=== PATIENT | female | born 1995 | race Caucasian/White ===

== ENCOUNTER 2023-01-08 01:01 | Emergency (ER) | payer MEDICAID, SELFPAY ==
[2023-01-08 01:03] VITALS: BP 112/94; PULSE 97; RESP 18; TEMP 36.5; O2SAT 99; BMI 28.0
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
--- NOTE | 2023-01-08 01:41 | RAD_ITS ---
EXAM: XR RIGHT HAND COMPLETE, 3 OR MORE VIEWS CLINICAL INDICATION: pain TECHNIQUE: Frontal, lateral and oblique views of the right hand. COMPARISON: No relevant prior studies available. FINDINGS: BONES/JOINTS: Unremarkable. No acute fracture. No subluxation. Normal alignment. Preservation of the joint space. No sclerotic or destructive changes observed. SOFT TISSUES: Unremarkable. No soft tissue swelling or gas. No radiopaque foreign body. RAD/Hand Min 3 Views IMPRESSION: Negative right hand x-rays. Electronically Signed: Andres Yip MD at 2:43 EDT ,
--- NOTE | 2023-01-08 01:41 | CT_ITS ---
EXAM: CT ANGIOGRAPHY NECK WITHOUT AND WITH INTRAVENOUS CONTRAST CLINICAL INDICATION: neck injury TECHNIQUE: Routine carotid CT angiography protocol was performed without and with intravenous contrast. NASCET criteria using the distal ICAs for comparison were used for evaluation of stenoses. This CT exam was performed using one or more of the following dose reduction techniques: automated exposure control, adjustment of the mA and/or kV according to patient size, and/or use of iterative reconstruction technique. MIP reconstructed images were created and reviewed. CONTRAST: IV 100mL [id number] RADIATION DOSE: Total DLP: 381.28 mGy-cm. COMPARISON: No relevant prior studies available. FINDINGS: VASCULATURE: RIGHT COMMON CAROTID ARTERY: Unremarkable. No occlusion or significant stenosis. No dissection. RIGHT INTERNAL CAROTID ARTERY: Unremarkable. Extracranial segment is patent with no occlusion or significant stenosis. No dissection. RIGHT EXTERNAL CAROTID ARTERY: Unremarkable. No occlusion. RIGHT VERTEBRAL ARTERY: Unremarkable. No occlusion or significant stenosis. No dissection. LEFT COMMON CAROTID ARTERY: Unremarkable. No occlusion or significant stenosis. No dissection. LEFT INTERNAL CAROTID ARTERY: Unremarkable. Extracranial segment is patent with no occlusion or significant stenosis. No dissection. LEFT EXTERNAL CAROTID ARTERY: Unremarkable. No occlusion. LEFT VERTEBRAL ARTERY: Unremarkable. No occlusion or significant stenosis. No dissection. BRACHIOCEPHALIC AND SUBCLAVIAN ARTERIES: Unremarkable as visualized. No occlusion or significant stenosis. OTHER ARTERIES: The basilar artery is normal. Visualized portions of the anterior, middle and posterior cerebral arteries are unremarkable. The visualized dural venous sinuses enhance normally. Visualized brain parenchyma is unremarkable. NECK: BONES/JOINTS: Unremarkable. Cervical vertebrae demonstrate normal curvature and alignment. No compression fracture, posterior element fracture or facet dislocation. The odontoid is intact. The hyoid bone is intact. No acute facial bone fracture is identified. There is no TMJ dislocation. SOFT TISSUES: Streaky density/hemorrhage noted within the right supraclavicular fossa, with streaky fat stranding extending superiorly into the right lower neck, posterior to the sternocleidomastoid muscle and lateral to the internal jugular vein. No active contrast extravasation is seen to indicate active bleeding. Sternocleidomastoid muscles are symmetric. There is no precervical soft tissue swelling. Normal size anterior and posterior internal jugular lymph nodes are present. No adenopathy is noted. Parotid and submandibular glands are unremarkable. LUNG APICES: Clear. Visualized upper ribs are intact. The visualized clavicles are intact. CAROTID STENOSIS REFERENCE USING NASCET CRITERIA: % ICA stenosis = (1 - narrowest ICA diameter/diameter of distal cervical ICA) x 100. Mild - <50% stenosis. Moderate - 50-69% stenosis. Severe - 70-94% stenosis. Near occlusion - 95-99% stenosis. Occluded - 100% stenosis. CT/CTA Neck W/WO Contrast IMPRESSION: No acute injury of the carotid or vertebral arteries identified. Streaky fat stranding/hemorrhage within the right supraclavicular fossa and extending into the inferior lateral aspect of the neck. No active contrast extravasation identified to indicate active bleeding. No acute fracture identified. Visualized upper lungs are clear. Electronically Signed: Andres Yip MD at 3:01 EDT ,
--- NOTE | 2023-01-08 01:41 | RAD_ITS ---
EXAM: XR RIGHT SHOULDER COMPLETE, 2 OR MORE VIEWS CLINICAL INDICATION: pain TECHNIQUE: 4 views of the right shoulder. COMPARISON: No relevant prior studies available. FINDINGS: BONES/JOINTS: Unremarkable. No acute fracture. No dislocation or AC joint widening. Normal alignment. Preservation of the joint space. No sclerotic or destructive changes observed. SOFT TISSUES: Unremarkable. No soft tissue swelling or gas. No radiopaque foreign body. OTHER: The visualized right upper ribs are intact. The visualized right lung is clear. RAD/Shoulder min 2 Views IMPRESSION: Negative right shoulder x-rays. Electronically Signed: Andres Yip MD at 2:42 EDT ,
--- NOTE | 2023-01-08 01:41 | CT_ITS ---
EXAM: CT HEAD WITHOUT INTRAVENOUS CONTRAST CLINICAL INDICATION: head injury TECHNIQUE: Multiple axial images were obtained of the head without intravenous contrast. This CT exam was performed using one or more of the following dose reduction techniques: automated exposure control, adjustment of the mA and/or kV according to patient size, and/or use of iterative reconstruction technique. RADIATION DOSE: Total DLP: 812.98 mGy-cm. COMPARISON: No relevant prior studies available. FINDINGS: BRAIN AND EXTRA-AXIAL SPACES: No intra- or extra-axial hemorrhage. No evidence of acute infarct. No intracranial mass or mass effect. There is preservation of the villalobos/white matter interface. Posterior fossa structures are unremarkable. Lateral and third ventricles are small, consistent with age. The fourth ventricle is normal in size. The basal cisterns are preserved. Cerebral cortical sulci and sylvian fissures are visible. No hydrocephalus. No midline shift. BONES/JOINTS: Unremarkable. No discrete lytic or blastic abnormalities. No linear or depressed skull fracture. SOFT TISSUES: Unremarkable. No scalp hematoma. SINUSES: Unremarkable as visualized. Clear. MASTOID AIR CELLS: Unremarkable. Clear. ORBITS: Visualized globes, extraocular muscles, optic nerves and retrobulbar fat appear unremarkable. CT/Brain/Head without Contrast IMPRESSION: Negative head/brain CT without intravenous contrast. No skull fracture or acute intracranial hemorrhage. Electronically Signed: Andres Yip MD at 2:49 EDT ,
[2023-01-08] MEDS: 0.9% Normal Saline 1,000 ML 999 ML IV (02:01)
[2023-01-08 02:10] LABS: Absolute Neutrophil Count 7.9 X10^3/uL (2.0-7.7); Basophil# 0.03 X10^3/uL; Basophil% 0.3 % (0-1); Eosinophil# 0.02 X10^3/uL; Eosinophils% 0.2 % (0-5); Hematocrit 37.9 % (37-47); Hemoglobin 12.2 g/dL (12.0-15.0); Mean Corp Hgb Conc 32.2 g/dL (32-36); Mean Corpuscular Volume 96.4 fL (81-99); Monocyte# 0.41 X10^3/uL; Monocyte% 4.1 % (0-10); NRBC Flagged by Analyzer 0 % (0-5); Neutrophil % 79.1 % (47-70); Platelet Count 289 K/mm3 (150-450); RBC Distribution Width CV 12.4 % (11.6-14.6); RBC Distribution Width SD 44.1 fl (35.1-43.9); Red Blood Count 3.93 M/mm3 (4.2-5.4)
[2023-01-08 02:24] LABS: Anion Gap 7 (5-15); BUN 9 mg/dL (7-18); BUN/Creat Ratio 11.3 RATIO (10-20); Calcium,Total 8.7 mg/dL (8.5-10.1); Chloride 110 mmol/L (98-107); Creatinine, Serum 0.79 mg/dL (0.55-1.02); EST Glomerular Filtration Rate 93 mL/min (>60); Est Glom Filt Rate - Afr Amer 113 mL/min (>60); Estimated Creatinine Clearance 101.91 ml/min; Glucose 105 mg/dL (74-106); Potassium 3.9 mmol/L (3.5-5.1); Sodium Level 140 mmol/L (136-145)
[2023-01-08] MEDS: Ketorolac 30 MG/ML Syringe IV (03:00)
[2023-01-08] MEDS: Lidocaine 2% /Epi 1:100 (20ml) 20 ML VIAL INFILT (03:00)
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
[2023-01-08 04:01] VITALS: BP 122/89; PULSE 87; RESP 17; O2SAT 100
== END 2023-01-08 04:05 | disposition home or self-care (01) ==
PROVIDERS: Emergency Provider Emergency Medicine; Visit Provider Emergency Medicine
DX: S01.81XA Laceration without foreign body of other part of head, initial encounter (principal); F41.9 Anxiety disorder, unspecified; S49.91XA Unspecified injury of right shoulder and upper arm, initial encounter; S06.0X0A Concussion without loss of consciousness, initial encounter; S19.9XXA Unspecified injury of neck, initial encounter; F32.9 Major depressive disorder, single episode, unspecified; Y04.2XXA Assault by strike against or bumped into by another person, initial encounter
CPT/HCPCS: 12011; 70450; 70498; 73030; 73130; 80048; 85025; 96361; 96374; 99285; J7030; Q9967; A4216

== ENCOUNTER 2023-01-09 12:48 | Emergency (ER) | payer MEDICAID, SELFPAY ==
--- NOTE | 2023-01-09 13:22 | ED.RN ---
PT. WAS NEVER SUPPOSED TO BE CHECKED INTO ER. SHE WAS SENT HERE TO GET PICTURES AND WAS SUPPOSE TO GO TO MEDICAL RECORDS.
== END 2023-01-09 13:30 | disposition left against medical advice (07) ==
LOC: ED 13:29
DX: Z00.00 Encounter for general adult medical examination without abnormal findings (principal); Y09 Assault by unspecified means